=== PATIENT | male | born 1990 | race African-American/Black ===

== ENCOUNTER 2017-08-18 06:00 | Emergency (ER) | payer SELFPAY ==
[~2017-08-18] VITALS: Ht 182.9 cm; Wt 153.8 kg
[2017-08-18] MEDS ORDERED: CYCL-331 PO (06:44)
[2017-08-18] MEDS ORDERED: AMLO10TA2 PO (06:44)
[2017-08-18] MEDS ORDERED: NAPR-683 PO (06:44)
--- NOTE | 2017-08-18 06:45 | PHYS DOC ---
Adult General Chief Complaint Chief Complaint: CHEST PAIN-NON CARDIAC NATURE HPI HPI 26-year-old male patient complaining of right-sided chest pain with radiation to right shoulder and back for the last 4 days as a constant pain that getting worse with movement as a sharp pain. Patient that the pain was minimal right lower rated his pain 9/10 and he states he applied Epsom salt without improvement of his pain. Patient did not take any pain medication. Patient denies shortness of breath, fever and chills, dizziness, palpitation, history of injury but states he has a physical work. Review of Systems Review of Systems Constitutional: Denies fever or chills [] Eyes: Denies change in visual acuity, redness, or eye pain [] HENT: Denies nasal congestion or sore throat [] Respiratory: Denies cough or shortness of breath [] Cardiovascular: No additional information not addressed in HPI [] GI: Denies abdominal pain, nausea, vomiting, bloody stools or diarrhea [] : Denies dysuria or hematuria [] Musculoskeletal: Denies back pain or joint pain [] Integument: Denies rash or skin lesions [] Neurologic: Denies headache, focal weakness or sensory changes [] Endocrine: Denies polyuria or polydipsia [] All other systems were reviewed and found to be within normal limits, except as documented in this note. Current Medications Current Medications Current Medications Medications (Trade) Dose Ordered Sig/Audie Start Time Stop Time Status Last Admin Dose Admin Ketorolac Tromethamine (Toradol) 60 mg 1X ONCE 08/18/17 06:30 08/18/17 06:31 UNV Allergies Allergies Allergies Coded Allergies Type Severity Reaction Last Updated Verified No Known Drug Allergies 08/18/17 No Physical Exam Physical Exam Constitutional: Well developed, well nourished, mild distress, non-toxic appearance. [] HENT: Normocephalic, atraumatic Eyes: PERRLA, EOMI, conjunctiva normal, no discharge. [] Neck: Normal range of motion, no tenderness, supple, no stridor. [] Cardiovascular:Heart rate regular rhythm, no murmur [] Lungs & Thorax: Bilateral breath sounds clear to auscultation , right chest wall reproducible pain[] Abdomen: Bowel sounds normal, soft, no tenderness, no masses, no pulsatile masses. [] Skin: Warm, dry, no erythema, no rash. [] Back: No tenderness, no CVA tenderness. [] Extremities: No tenderness, no cyanosis, no clubbing, ROM intact, no edema. [] Neurologic: Alert and oriented X 3, normal motor function, normal sensory function, no focal deficits noted. [] Psychologic: Affect normal, judgement normal, mood normal. [] EKG EKG [] Radiology/Procedures Radiology/Procedures [] Course & Med Decision Making Course & Med Decision Making Evaluation of patient in ER showed 26-year-old male patient complaining of right -sided chest wall pain that getting force with movement. Patient has reproducible right-sided chest pain. Patient also had blood pressure of 142/92 and states he had several episodes of high blood pressure reading without diagnosis of hypertension. Patient treated with Toradol in ER and felt better. Prescription for Norvasc was given and instructed to follow with primary care physician and record his blood pressure.[] Dragon Disclaimer Dragon Disclaimer This electronic medical record was generated, in whole or in part, using a voice recognition dictation system. Departure Departure: Impression: Primary Impression: Musculoskeletal chest pain Additional Impressions: Elevated blood pressure reading without diagnosis of hypertension Morbid obesity Tobacco abuse Tobacco abuse counseling Disposition: HOME, SELF-CARE (At 0650) Condition: IMPROVED Referrals: PCPKIKE (PCP) Patient Instructions: Hypertension, Managing Your High Blood Pressure, Musculoskeletal Pain, Smoking Cessation, Tips For Success Additional Instructions: Apply ice on the affected area Follow-up with your primary care physician in 3-5 days Return to ER if not getting better Scripts Amlodipine Besylate (AMLODIPINE BESYLATE) 10 Mg Tablet 1 TAB PO DAILY, #30 TAB 5 Refills Prov: JORDAN BARRAGAN MD 08/18/17 Naproxen (NAPROSYN) 500 Mg Tablet 1 TAB PO BID, #20 TAB 2 Refills Prov: JORDAN BARRAGAN MD 08/18/17 Cyclobenzaprine Hcl (CYCLOBENZAPRINE HCL) 10 Mg Tablet 1 TAB PO TID, #30 TAB Prov: JORDAN BARRAGAN MD 08/18/17 Problem Qualifiers JORDAN BARRAGAN MD Aug 18, 2017 06:45
[2017-08-18] MEDS: KETOROLAC 60 MG/2 ML VIAL. IM ONE (06:54)
[2017-08-18 07:06] VITALS: BP 149/89
== END 2017-08-18 07:10 | disposition home or self-care (01) ==
LOC: ER 06:00
DX: R07.89 Other chest pain (principal); R03.0 Elevated blood-pressure reading, without diagnosis of hypertension; E66.01 Morbid (severe) obesity due to excess calories; Z68.42 Body mass index [BMI] 45.0-49.9, adult; Z72.0 Tobacco use; Z71.6 Tobacco abuse counseling
CPT/HCPCS: 96372; 99283; J1885

== ENCOUNTER 2020-06-17 09:10 | Emergency (ER) | payer SELFPAY ==
[~2020-06-17 09:10] MED LIST: AMLO-187 PO; CYCL-331 PO; NAPR-683 PO
--- NOTE | 2020-06-18 11:59 | RAD ---
Study: XR CHEST 2V Indication: Cough. Comparison: None. Findings: The cardiomediastinal silhouette and valorie are within normal limits. No focal airspace infiltrate, lay ering effusion or pneumothorax. Unremarkable osseous structures and partially imaged upper abdomen. Impression: No acute radiographic abnormality of the chest. No findings of an organizing pneumonia at this time. Electronically signed by: SHREYA MEDELLIN MD (06/18/2020 11:57 AM) [id number]
== END 2020-06-17 12:30 | disposition home or self-care (01) ==
LOC: ER 09:10
DX: J32.9 Chronic sinusitis, unspecified (principal)
CPT/HCPCS: 71046; 99283

== ENCOUNTER 2020-07-27 08:45 | Emergency (ER) | payer SELFPAY ==
[~2020-07-27] VITALS: Ht 182.9 cm; Wt 131.3 kg
[2020-07-27 08:58] VITALS: BP 166/87
--- NOTE | 2020-07-27 08:59 | PHYS DOC ---
Past History Past Medical History: Asthma Alcohol Use: Heavy Drug Use: Marijuana General Adult EDM: Chief Complaint: EYE PROBLEMS HPI: HPI: 29-year-old male past medical history of asthma, presents the ED with complaints of progressively worsening painful right eye with significant light sensitivity and tearing that started on Tuesday, initially thought to be allergies and was taking Benadryl for this. Complains of right eye blurry vision, foreign body sensation and right-sided headache. Denies any blunt trauma to the right eye, UV lights or welding. Does not recall any specific time where he noticed something go into his eye. Does not wear contact lenses or glasses. Does not know his baseline vision but states he needs glasses. Denies any associated nausea, vomiting, intermittent blurry vision, or blurry vision with halos. Review of Systems: Review of Systems: Constitutional: Denies fever or chills Eyes: Denies vision loss or double vision HENT: Denies nasal congestion or sore throat Respiratory: Denies cough or shortness of breath Cardiovascular: Denies chest pain or edema GI: Denies abdominal pain, nausea, vomiting, bloody stools or diarrhea : Denies dysuria Musculoskeletal: Denies back pain or joint pain Integument: Denies rash Neurologic: Denies neck stiffness, focal weakness or sensory changes Endocrine: Denies polyuria or polydipsia Lymphatic: Denies swollen glands Psychiatric: Denies depression or anxiety Allergies: Allergies: Allergies Coded Allergies Type Severity Reaction Last Updated Verified No Known Drug Allergies 08/18/17 No Physical Exam: PE: Constitutional: Well developed, well nourished, no acute distress, non-toxic appearance. HENT: Normocephalic, atraumatic, Eyes: PERRLA (3mm bl, both eyes 2mm with constriction), EOMI, right erythematous/conjunctival injection, clear eye discharge, no significant relief with topical tetracaine, fluorescein uptake at 6:30 PM position with no Zaki sign, no flat anterior chamber, no ciliary flush, right eye 20/70, left eye 20/20, both eyes 20/20-patient reports this is his normal baseline vision, tonopen 18 and 19, slightly exam performed -questionable cells and flare along the medial aspect of anterior chamber (3 attempts at exam- limited 2/2 pt discomfort), no epiphora or swelling at medial canthus, cornea not hazy Neck: Normal range of motion, supple, Cardiovascular: S1/2 present, regular rhythm Lungs & Thorax: Speaking in full sentences, bilateral equal chest rise, no tachypnea or increased work of breathing Abdomen: soft, no tenderness, Skin: Warm, dry, no erythema, no rash. [] Back: No tenderness, no CVA tenderness. [] Extremities: No tenderness, no cyanosis, no lower extremity edema Neurologic: Alert and oriented X 3, normal motor function, normal sensory function, no focal deficits noted. [] Psychologic: Affect normal, judgement normal, mood normal. [] EKG: EKG: [] Radiology/Procedures: Radiology/Procedures: [] Heart Score: C/O Chest Pain: No Risk Factors: Risk Factors: DM, Current or recent (<one month) smoker, HTN, HLP, family history of CAD, obesity. Risk Scores: Score 0 - 3: 2.5% MACE over next 6 weeks - Discharge Home Score 4 - 6: 20.3% MACE over next 6 weeks - Admit for Clinical Observation Score 7 - 10: 72.7% MACE over next 6 weeks - Early Invasive Strategies Course & Med Decision Making: Course & Med Decision Making Pertinent Labs and Imaging studies reviewed. (See chart for details) D/w RN at [facility] who discussed pts' exam with Dr. Kirk (senior financial). Recommends ofloxacin eyedrops 4 times daily and hourly artificial tears. Will discharge home with strict ED return precautions were given for []. Encouraged urgent outpatient follow-up with PMD and ophthalmology. Life- threatening processes were considered but are low suspicion at this time, given history, physical exam and ED workup. Pt was educated on all prescription medications and adverse effects. All patient's questions were answered and pt was stable at time of discharge. Life/limb-threatening differential includes but is not limited to, acute angle- closure glaucoma, uveitis, corneal abrasion, CRVO/CRAO, PRES, retinal detachment, vitreous hemorrhage, temporal arteritis, optic neuritis, high- altitude retinopathy foreign body, globe rupture, episcleritis, corneal ulcer, traumatic iritis, hyphema or empyema, orbital cellulitis, orbital hematoma, lens dislocation, orbital wall fracture or toxidrome (digoxin, methanol, anticholinergic, hallucinogenic, etc). I spoken with the patient and her caregivers. I explained the patient's condition, diagnoses and treatment plan based on the information available to me at this time. I have answered the patient and her caregiver's questions and addressed any concerns. The patient and her caregivers have a good understanding of patient's diagnosis, condition and treatment plan as can be expected at this point. Vital signs have been stable. Patient's condition is s table and appropriate for discharge from the emergency department. Patient will pursue further outpatient evaluation with primary care physician or other designated or consulting physician as outlined in the discharge instructions. The patient and/or caregivers are agreeable to this plan of care and follow-up instructions have been explained in detail. The patient and/or caregivers have received these instructions in written form and have expressed an understanding of the discharge instructions. The patient and/or caregivers are aware that any significant change of condition or worsening of symptoms should prompt immediate return to this or the closest emergency department or call to 911. Deandre Disclaimer: Deandre Disclaimer: This electronic medical record was generated, in whole or in part, using a voice recognition dictation system. Departure Departure: Impression: Primary Impression: Pain, eye, right Additional Impressions: Corneal abrasion, right Conjunctival injection Disposition: 01 DC HOME SELF CARE/HOMELESS Condition: STABLE Referrals: PCP,NO (PCP) FOLLOW UP WITH FAMILY MEDICINE: [facility], [facility] [address] [address] [address], [facility] Instructions: Conjunctivitis (Viral and Bacterial), Eye - Corneal Abrasion, Uveitis Additional Instructions: FOLLOW UP WITH OPTHALMOLOGY: at 8am TOMORROW 07/28/20 Dr. Osmel Salinas, DO [address] [place] [address] P: [phone] F: [phone] CLINIC HOURS: Mon-Thurs: 7:45am-5:00pm Fri: 7:30am-3:00pm EMERGENCY DEPARTMENT GENERAL DISCHARGE INSTRUCTIONS Thank you for coming to [facility] (ED) today and trusting us with you care. We trust that you had a positivie experience in our Emergency Department. If you wish to speak to the department management, you may call the director at [phone]. YOUR FOLLOW UP INSTRUCTIONS ARE FOLLOWS: 1. Do you have a private Doctor? If you do not have a private doctor, please ask for a resource list of physicians or clinics that may be able to assist you with follow up care. 2. The Emergency Physician has interpreted your x-rays. The X-Ray specialist will also review them. If there is a change in the findings, you will be notified in 48 hours when at all possible. 3. A lab test or culture has been done, your results will be reviewed and you will be notified if you need a change in treatment. ADDITIONAL INSTRUCTIONS AND INFORMATION: 1. Your care today has been supervised by a physician who is specially trained in emergency care. Many problems require more than one evaluation for a complete diagnosis and treatment. We recommend that you schedule your follow up appointment as recommended to ensure complete treatment of you illness or injury. If you are unable to obtain follow up care and continue to have a problem, or if your condition worsens, we recommend that you return to the ED. 2. We are not able to safely determine your condition over the phone nor are we able to give sound medical advice over the phone. For these safety reasons, if you call for medical advice we will ask you to come to the ED for further evaluation. 3. If you have any questions regarding these discharge instructions please call the ED at [phone]. SAFETY INFORMATION: In the interest of safety, wellness, and injury prevention; we encourage you to wear your sealbelt, if you smoke; quite smoking, and we encourage family to use a protective helmet for bicycling and other sporting events that present an increased risk for head injury. IF YOUR SYMPTOMS WORSEN OR NEW SYMPTOMS DEVELOP, OR YOU HAVE CONCERNS ABOUT YOUR CONDITION; OR IF YOUR CONDITION WORSENS WHILE YOU ARE WAITING FOR YOUR FOLLOW UP APPOINTMENT; EITHER CONTACT YOUR PRIMARY CARE DOCTOR, THE PHYSICIAN WHOSE NAME AND NUMBER YOU WERE GIVEN, OR RETURN TO THE ED IMMEDIATELY. Scripts Polyvinyl Alcohol (ARTIFICIAL TEARS) 15 Ml Drops 1 DROP OD hourly for while awake for 3 Days, #15 ML 0 Refills PRESERVATIVE FREE EYE DROPS IS BEST (REFRESH OPTIVE) Prov: FRANKY SHAW DO 07/27/20 Ofloxacin (Ofloxacin) 5 Ml Drops 1 DROP OD QID for corneal abrasion for 7 Days, #5 ML 0 Refills Prov: FRANKY SHAW DO 07/27/20 FRANKY SHAW DO Jul 27, 2020 08:58
[2020-07-27] MEDS ORDERED: FLUORESCEIN 1MG EYE STRIP. OD ONE (09:00)
[2020-07-27] MEDS ORDERED: TETRACAINE 0.5% OPHTH SOLUTION 4ML BOTTLE. OD ONE (09:00)
[2020-07-27] MEDS ORDERED: PROCHLORPERAZINE 10 MG/2 ML VIAL. IM ONE (09:45)
[2020-07-27] MEDS ORDERED: IBUPROFEN 600 MG TABLET. PO ONE (09:45)
[2020-07-27] MEDS ORDERED: DEXAMETHASONE 4 MG TABLET PO ONE (09:45)
[2020-07-27] MEDS ORDERED: POLY15DR27 OD (10:47)
[2020-07-27] MEDS ORDERED: OFLO5DRO4 OD (10:47)
== END 2020-07-27 10:55 | disposition home or self-care (01) ==
LOC: ER 08:45
DX: S05.01XA Injury of conjunctiva and corneal abrasion without foreign body, right eye, initial encounter (principal); R51.9 Headache, unspecified; J45.909 Unspecified asthma, uncomplicated; F10.20 Alcohol dependence, uncomplicated; Y90.9 Presence of alcohol in blood, level not specified; X58.XXXA Exposure to other specified factors, initial encounter; Y93.89 Activity, other specified; Y92.89 Other specified places as the place of occurrence of the external cause; Y99.8 Other external cause status
CPT/HCPCS: 96372; 99284; J0780; J8540

== ENCOUNTER 2021-04-29 08:44 | Emergency (ER) | payer SELFPAY ==
[~2021-04-29] VITALS: Ht 182.9 cm; Wt 131.3 kg
[~2021-04-29 08:44] MED LIST changes: -CYCL-331 PO; +CYCL10TA19 PO; +OFLO5DRO4 OD; +POLY15DR27 OD
[2021-04-29 09:08] VITALS: BP 151/97
--- NOTE | 2021-04-29 09:32 | PHYS DOC ---
Past History Past Medical History: Asthma Past Surgical History: No Surgical History Alcohol Use: None Drug Use: Marijuana General Adult EDM: Chief Complaint: SHORTNESS OF BREATH HPI: HPI: 30-year-old male presents with concern for COVID-19. The patient has had fatigue, body aches, mild intermittent headache for about 4 days. There was a positive Covid exposure at his work and he felt like he should get tested since he has symptoms. He attempted to go to the health department but they are not testing today. Patient is fully vaccinated. His second shot was January 2021. Review of Systems: Review of Systems: Constitutional: Denies fever or chills. Body aches, fatigue. Eyes: Denies change in visual acuity HENT: Denies nasal congestion or sore throat Respiratory: Denies cough or shortness of breath Cardiovascular: Denies chest pain or edema GI: Denies abdominal pain, nausea, vomiting, bloody stools or diarrhea : Denies dysuria Musculoskeletal: Denies back pain or joint pain Integument: Denies rash Neurologic: headache. Denies focal weakness or sensory changes Endocrine: Denies polyuria or polydipsia Lymphatic: Denies swollen glands Psychiatric: Denies depression or anxiety Allergies: Allergies: Allergies Coded Allergies Type Severity Reaction Last Updated Verified No Known Drug Allergies 08/18/17 No Physical Exam: PE: Constitutional: Well developed, well nourished, obese, no acute distress, non- toxic appearance. [] HENT: Normocephalic, atraumatic, bilateral external ears normal, oropharynx moist, no oral exudates, nose normal. [] Eyes: PERRLA, EOMI, conjunctiva normal, no discharge. [] Neck: Normal range of motion, no tenderness, supple, no stridor. [] Cardiovascular: Heart rate regular rhythm, no murmur [] Lungs & Thorax: Bilateral breath sounds clear to auscultation [] Abdomen: Bowel sounds normal, soft, no tenderness, no masses, no pulsatile masses. [] Skin: Warm, dry, no erythema, no rash. [] Back: No tenderness, no CVA tenderness. [] Extremities: No tenderness, no cyanosis, no clubbing, ROM intact, no edema. [] Neurologic: Alert and oriented X 3, normal motor function, normal sensory function, no focal deficits noted. [] Psychologic: Affect normal, judgement normal, mood normal. [] Current Patient Data: Vital Signs: Vital Signs Date Time Temp Pulse Resp B/P (MAP) Pulse Ox O2 Delivery O2 Flow Rate FiO2 04/29/21 09:08 97.6 98 18 151/97 (115) 99 Room Air EKG: EKG: [] Radiology/Procedures: Radiology/Procedures: [] Heart Score: C/O Chest Pain: N/A Risk Factors: Risk Factors: DM, Current or recent (<one month) smoker, HTN, HLP, family history of CAD, obesity. Risk Scores: Score 0 - 3: 2.5% MACE over next 6 weeks - Discharge Home Score 4 - 6: 20.3% MACE over next 6 weeks - Admit for Clinical Observation Score 7 - 10: 72.7% MACE over next 6 weeks - Early Invasive Strategies Course & Med Decision Making: Course & Med Decision Making Pertinent Labs and Imaging studies reviewed. (See chart for details) The patient has been swabbed for influenza and COVID-19. The results are pending and the patient will be made aware of the results when available. He is stable for discharge at this time. [] Dragon Disclaimer: Dragon Disclaimer: This electronic medical record was generated, in whole or in part, using a voice recognition dictation system. Departure Departure: Impression: Primary Impression: Suspected 2019 novel coronavirus infection Disposition: HOME / SELF CARE / HOMELESS Condition: STABLE Referrals: PCP,KIKE (PCP) Patient Instructions: Viral Syndrome Additional Instructions: You have been tested for or diagnosed with COVID-19. It is an infection caused by a new type of coronavirus. COVID-19 will cause cold-like or mild flu symptoms in most. It can cause more severe symptoms like problems breathing in some. There is no treatment for COVID-19. The body will clear the infection over time. Self-care will help to ease discomfort. Steps to Take: Self-Care Rest as needed. Healthy habits may help you feel better. Steps include: Choose healthy foods including fruits and vegetables. Drink water throughout the day. Get plenty of sleep each night. If you smoke, try to quit. It may ease breathing. Avoid alcohol. Keep Others Healthy The virus can spread to others. Droplets are released every time you sneeze or cough. The droplets can get into the mouth, nose, or eyes of people near you and lead to infection. To lower the chances of spreading COVID-19 to others: Stay at home until your doctor has said it is safe to leave. If you tested positive this will mean staying isolated until both of the following are true: At least 7 days have passed since the start of illness. You are free of fever for at least 72 hours without the use of medicine. During this time: - Avoid public areas, events, or transportation. Do not return to work or school until your doctor has said it is safe to do so. - Call ahead if you need to go to a medical center. Let them know you may have COVID-19. It will help them guide you where to go. They may also ask you to wear a facemask when you come to the office. - If you call for emergency medical services, let them know you may have COVID- 19. While at home: - Try to avoid close contact with others. Stay about 6 feet away. - If possible, spend most of your time in a separate room from others. - Use a face mask if you will be in close contact with others such as sharing a room or vehicle. - Have someone wipe down common surfaces in the home. Use household client support associate every day on areas like doorknobs, counters, or sinks. - Cough or sneeze into a tissue. Throw the tissue away right after use. If a tissue is not available, cough or sneeze into your elbow. - Wash your hands often. Wash them after sneezing or coughing. Use soap and water and wash for at least 20 seconds. Alcohol based hand apron cleaner can be used if soap and water is not available. - Do not prepare food for others. Avoid sharing personal items like forks, spoons, or toothbrushes. - Avoid close contact with pets while you are sick. There is no evidence of the virus passing to pets. This is a safety step until more is known about this virus. Isolation can be frustrating. Social interaction can help. Keep in touch with friends and family through phone and tech options. You can still interact with others in your home, just keep a safe distance of about 6 feet. Follow-up: Your doctors office will check in with you to see if there are any changes in your health. You may be asked to keep track of symptoms to share with them. They will also let you know when you are clear to be in public again. Problems to Look Out For: Contact your doctor if your recovery is not going as you expect. Get emergency care if you have problems such as: - Trouble breathing - Nonstop chest pain or pressure - Changes in awareness, confusion, or problems waking - Lips or face have bluish color - Worsening of symptoms If you think you have an emergency, call for emergency medical services right away. As taken from [facility] JANEY RODRIGUEZ DO Apr 29, 2021 09:32
[2021-04-29 10:41] LABS: INFLUENZA A PATIENT NEGATIVE (NEGATIVE); INFLUENZA B PATIENT NEGATIVE (NEGATIVE)
== END 2021-04-29 16:01 | disposition home or self-care (01) ==
LOC: ER 08:44
DX: R53.83 Other fatigue (principal); M79.10 Myalgia, unspecified site; R51.9 Headache, unspecified; J45.909 Unspecified asthma, uncomplicated; Z20.822 Contact with and (suspected) exposure to COVID-19
CPT/HCPCS: 87804; 99283; C9803; U0003